=== PATIENT | male | born 1965 | race Caucasian/White ===

== ENCOUNTER 2021-11-03 18:57 | Inpatient (IN) | payer OTHER ==
[2021-11-03] MEDS ORDERED: NA CHLORIDE 0.9% 1,000 ML ONE ×2 (19:50→19:51)
[2021-11-03 20:30] LABS: Absolute Lymphocytes (CBC) 0.7 K/uL (0.7-4.9); Hematocrit 42.9 % (39.6-49.0); Lymphocytes % 3.2 % (15.3-44.8); MCV 90.6 fL (80-100); MPV 7.2 fL (7.6-11.3); RBC Red Blood Cell Count 4.73 M/uL (4.33-5.43)
[2021-11-03 20:36] LABS: Protime INR 1.12
--- NOTE | 2021-11-03 20:43 | RAD REPORT ---
EXAM DESCRIPTION: CT - Head Brain Wo Cont - 11/03/2021 8:23 pm CLINICAL HISTORY: Facial trauma, blunt COMPARISON: No comparisons TECHNIQUE: Axial 5 mm thick images of the head were obtained without IV contrast. All CT scans are performed using dose optimization technique as appropriate and may include automated exposure control or mA/KV adjustment according to patient size. FINDINGS: No intracranial hemorrhage, mass, edema or shift of mid-line structures. No acute infarcti on changes seen. No abnormal extra-axial fluid collections. Ventricles are normal. Mastoid air cells and visualized portions of the paranasal sinuses are clear. No acute bony findings. IMPRESSION: Negative non-contrast CT head examination.
--- NOTE | 2021-11-03 20:46 | RAD REPORT ---
EXAM DESCRIPTION: RAD - Chest Single View - 11/03/2021 8:35 pm CLINICAL HISTORY: tachycardia, syncope COMPARISON: Two view chest 01/23/2012 TECHNIQUE: AP portable chest image was obtained 11/03/2021 8:35 pm . FINDINGS: Lungs are clear. Heart and vasculature are normal. No measurable pleural effusion and no p neumothorax. No acute bony abnormality seen. No acute aortic findings suspected. IMPRESSION: No acute cardiopulmonary process.
[2021-11-03 20:51] LABS: Albumin 3.9 g/dL (3.4-5.0); Bilirubin Direct 0.2 mg/dL (0-0.2); Bilirubin Total 0.8 mg/dL (0.2-1.0); Potassium 3.8 mmol/L (3.5-5.1); Protein, Total 7.2 g/dL (6.4-8.2); Troponin High Sensitivity 17.4 pg/mL (<58.9)
--- NOTE | 2021-11-03 21:56 | EDPHYS ---
Physician Documentation [facility] Name: Krissy Schmitz Age: 56 yrs Sex: Male : 1965 Arrival Date: 11/03/2021 Time: 18:59 Bed 27 Private MD: ED Physician Ayaan Montenegro HPI: 11/03 19:31 This 56 yrs old Male presents to ER via EMS with complaints of Fall. mh7 19:31 Details of fall: The patient fell from an upright position, while walking. Onset: The mh7 symptoms/episode began/occurred today. Associated injuries: The patient sustained no obvious injury. Severity of symptoms: At their worst the symptoms were moderate, earlier today, in the emergency department the symptoms have improved, moderately. Patient states that he was working today for several hours sweating a lot due to the nature of his work. He states that he had some nausea. He states that while he was walking he tripped over a rug and fell onto the ground and had an episode of diarrhea. He denies any LOC or head injury at that time. He states earlier at work he accidentally bumped into a pipe hitting the left side of his forehead but had no LOC at that time. He denies any chest pain, abdominal pian, SOB, fever, cough, vomiting, dizziness, numbness/tingling, or weakness.. Historical: - Allergies: 19:18 No Known Allergies; ld1 - Home Meds: 19:18 Lasix 20 mg Oral tab 1 tab 3 times per day [Active]; losartan 50 mg oral tab 1 tab 2 ld1 times per day [Active]; - PMHx: 19:18 Hypertensive disorder; ld1 - PSHx: 19:18 None; ld1 - Immunization history:: Adult Immunizations up to date, Client reports receiving the 2nd dose of the Covid vaccine. - Social history:: Smoking status: Patient denies any tobacco usage or history of. Patient/guardian denies using alcohol. ROS: 19:31 Constitutional: Negative for fever, chills, and weight loss, Eyes: Negative for injury, mh7 pain, redness, and discharge, ENT: Negative for injury, pain, and discharge, Neck: Negative for injury, pain, and swelling, Cardiovascular: Negative for chest pain, palpitations, and edema, Respiratory: Negative for shortness of breath, cough, wheezing, and pleuritic chest pain. 19:31 Back: Negative for injury and pain, : Negative for injury, bleeding, discharge, and swelling, MS/Extremity: Negative for injury and deformity, Skin: Negative for injury, rash, and discoloration, Neuro: Negative for headache, weakness, numbness, tingling, and seizure, Psych: Negative for depression, anxiety, suicide ideation, homicidal ideation, and hallucinations, Allergy/Immunology: Negative for hives, rash, and allergies, Endocrine: Negative for neck swelling, polydipsia, polyuria, polyphagia, and marked weight changes, Hematologic/Lymphatic: Negative for swollen nodes, abnormal bleeding, and unusual bruising. 19:31 Abdomen/GI: Negative for abdominal pain, vomiting, constipation, abdominal cramps, abdominal distension, anorexia, dysphagia, hematemesis, black/tarry stool, rectal pain, rectal bleeding, bowel incontinence, flatulence. Exam: 19:31 Constitutional: This is a well developed, well nourished patient who is awake, alert, mh7 and in no acute distress. 19:31 Eyes: Pupils equal round and reactive to light, extra-ocular motions intact. Lids and mh7 lashes normal. Conjunctiva and sclera are non-icteric and not injected. Cornea within normal limits. Periorbital areas with no swelling, redness, or edema. Neck: Trachea midline, no thyromegaly or masses palpated, and no cervical lymphadenopathy. Supple, full range of motion without nuchal rigidity, or vertebral point tenderness. No Meningismus. Chest/axilla: Normal chest wall appearance and motion. Nontender with no deformity. No lesions are appreciated. 19:31 Respiratory: Lungs have equal breath sounds bilaterally, clear to auscultation and percussion. No rales, rhonchi or wheezes noted. No increased work of breathing, no retractions or nasal flaring. Abdomen/GI: Soft, non-tender, with normal bowel sounds. No distension or tympany. No guarding or rebound. No evidence of tenderness throughout. Back: No spinal tenderness. No costovertebral tenderness. Full range of motion. Skin: Warm, dry with normal turgor. Normal color with no rashes, no lesions, and no evidence of cellulitis. MS/ Extremity: Pulses equal, no cyanosis. Neurovascular intact. Full, normal range of motion. 19:31 Psych: Awake, alert, with orientation to person, place and time. Behavior, mood, and affect are within normal limits. 19:31 Head/face: Noted is abrasion(s), that are mild, of the forehead, contusion, that is superficial, of the forehead. 19:31 Cardiovascular: Rate: tachycardic, Rhythm: regular, Pulses: no pulse deficits are appreciated, Heart sounds: normal, normal S1and S2, Edema: is not appreciated, JVD: is not appreciated. 19:31 Neuro: Orientation: is normal, Mentation: is normal, Memory: is normal, Cranial nerves: grossly normal, Cerebellar function: is grossly normal, Motor: is normal, Sensation: is normal, Gait: not tested. seizure activity, is not displayed by the patient, Abnormal movements: there are no abnormal movements. Vital Signs: 19:16 Pulse 128; Resp 26; Temp 98.9(O); Pulse Ox 95% on R/A; Weight 136.08 kg; Height 5 ft. 8 ld1 in. (172.72 cm); Pain 0/10; 19:24 BP 101 / 65; ld1 21:38 BP 103 / 66; Pulse 117; Resp 20 S; Pulse Ox 97% on R/A; as6 23:00 BP 111 / 70; Pulse 121; Resp 19 S; Pulse Ox 97% on R/A; as6 11/04 01:00 BP 120 / 72; Pulse 119; Resp 16 S; Pulse Ox 100% on R/A; as6 11/03 19:16 Body Mass Index 45.61 (136.08 kg, 172.72 cm) ld1 MDM: 11/03 21:50 Differential diagnosis: abrasion, closed head injury, contusion, fracture. Data [facility] reviewed: vital signs, nurses notes, EMS record, lab test result(s), cardiac enzymes, CBC, electrolytes, Flu: negative EKG, radiologic studies, CT scan, plain films. Data interpreted: Pulse oximetry: on room air is 97 %. Interpretation: normal. Counseling: I had a detailed discussion with the patient and/or guardian regarding: the historical points, exam findings, and any diagnostic results supporting the discharge/admit diagnosis, lab results, radiology results, the need for further work-up and treatment in the hospital. Response to treatment: the patient's symptoms have mildly improved after treatment. 21:55 Patient medically screened. 11/03 19:22 Order name: Basic Metabolic Panel; Complete Time: 21:15 11/03 19:22 Order name: CBC with Diff; Complete Time: 04:45 11/03 19:22 Order name: LFT's; Complete Time: 21:17 11/03 19:22 Order name: Magnesium; Complete Time: 21: 11/03 19:22 Order name: NT PRO-BNP; Complete Time: 21: 11/03 19:22 Order name: PT-INR; Complete Time: 04:45 11/03 19:22 Order name: Troponin HS; Complete Time: 21: 11/03 19:23 Order name: CPK; Complete Time: 21:17 11/03 19:24 Order name: COVID-19 SARS RT PCR (Document "Date of Onset" if Symptomatic); Complete [facility] Time: :11/03 19:25 Order name: Influenza Screen (a \\T\\ B); Complete Time: 21:17 11/03 20:37 Order name: Blood Culture Adult (2) 11/03 20:37 Order name: Lactate; Complete Time: 04:45 11/03 20:37 Order name: Procalcitonin; Complete Time: 04:45 11/03 22:05 Order name: CBC Smear Scan; Complete Time: 04:45 [facility] 11/03 19:22 Order name: XRAY Chest (1 view); Complete Time: 20:49 11/03 19:22 Order name: EKG; Complete Time: 19:23 11/03 19:22 Order name: Cardiac monitoring; Complete Time: 19:40 11/03 19:22 Order name: EKG - Nurse/Tech; Complete Time: 20:12 11/03 19:22 Order name: IV Saline Lock; Complete Time: 20:13 11/03 19:22 Order name: Labs collected and sent; Complete Time: 20:13 11/03 19:22 Order name: O2 Per Protocol; Complete Time: 19:40 11/03 19:22 Order name: O2 Sat Monitoring; Complete Time: 19:40 7 11/03 19:23 Order name: CT Head Brain wo Cont; Complete Time: 20:49 7 11/03 22:27 Order name: D-Dimer; Complete Time: 04:45 EDMS 11/04 04:22 Order name: CBC with Automated Diff; Complete Time: 04:45 EDMS 11/04 04:24 Order name: Comprehensive Metabolic Panel; Complete Time: 04:45 EDMS Administered Medications: 20:12 Drug: NS 0.9% 1000 ml Route: IV; Rate: 1000 ml; Site: right antecubital; as6 23:18 Follow up: Response: No adverse reaction; IV Status: Completed infusion; IV Intake: as6 1000ml 21:33 Drug: NS 0.9% 1000 ml Route: IV; Rate: 1000 ml; Site: right antecubital; as6 23:19 Follow up: Response: No adverse reaction; IV Status: Completed infusion; IV Intake: as6 1000ml 23:13 Drug: ceFAZolin 1 grams Volume: 50 ml; Route: IVPB; Infused Over: 30 mins; Site: right as6 antecubital; 11/04 03:17 Follow up: Response: No adverse reaction; IV Status: Completed infusion; IV Intake: [id number] Disposition Summary: 11/03/21 21:55 Hospitalization Ordered Condition: Stable [facility] Problem: new [facility] Symptoms: have improved [facility] Bed/Room Type: Standard [facility] Hospitalization Status: Inpatient Admission(11/03/21 21:55) [facility] Provider: Lauri Staples(11/03/21 21:55) la1 Location: Telemetry/MedSurg (Inpatient)(11/04/21 07:12) Room Assignment: 213(11/04/21 07:12) bd Diagnosis - Syncope Near [facility] - Leukocytosis [facility] Forms: - Medication Reconciliation Form 7 - SBAR form 7 Signatures: Dispatcher [employer] EDMariza Dill Brenda RN RN Damien Erickson, [employer] FABRICATOR-C [employer] FABRICATOR-Cla1 Selma Chang RN RN cg Holmes, Maurice, MD MD 7 Candida Rangel RN RN ld1 Lamine Soares RN RN as6 Corrections: (The following items were deleted from the chart) 11/03 21:55 21:55 Observation mh7 mh7 21:55 21:55 OmitogunBrady mh7 la1 21:55 21:55 Telemetry/MedSurg (observation) 7 7 21:55 21:55 7 7 22:24 22:22 D-DIMER+COAG.LAB.BRZ ordered. EDMS EDMS 23:07 21:55 Telemetry/MedSurg (Inpatient) 7 cg 23:07 21:55 7 cg 11/04 02:05 11/03 23:07 [facility] ER HOLD cg 11/04 02:05 11/03 23:07 ERHOLD- cg bb 11/04 02:06 02:05 Telemetry/MedSurg (Inpatient) bb bb 02:06 02:05 bb bb 07:12 02:06 [facility] ER HOLD bb bd 07:12 02:06 ERHOLD- bb bd
--- NOTE | 2021-11-03 21:56 | ER ---
Nurse's Notes [facility] Name: Krissy Schmitz Age: 56 yrs Sex: Male : 1965 Arrival Date: 11/03/2021 Time: 18:59 Bed 27 Private MD: Diagnosis: Syncope Near;Leukocytosis Presentation: 11/03 18:59 Chief complaint: EMS states: EMS reports syncopal episode at work, diaphoretic - fell ld1 and hit head, defecated on self during episode. Coronavirus screen: At this time, the client does not indicate any symptoms associated with coronavirus-19. Ebola Screen: No symptoms or risks identified at this time. Initial Sepsis Screen: Does the patient meet any 2 criteria? No. Patient's initial sepsis screen is negative. Does the patient have a suspected source of infection? No. Patient's initial sepsis screen is negative. Risk Assessment: Do you want to hurt yourself or someone else? Patient reports no desire to harm self or others. Onset of symptoms was November 03, 2021. 18:59 Method Of Arrival: EMS: [facility] ld1 18:59 Acuity: ANTONY 3 ld1 Triage Assessment: 18:59 General: Appears in no apparent distress. comfortable, Behavior is calm, cooperative, ld1 appropriate for age. Pain: Denies pain. EENT: No signs and/or symptoms were reported regarding the EENT system. Neuro: Level of Consciousness is awake, alert, obeys commands, Oriented to person, place, time, situation. Cardiovascular: Capillary refill < 3 seconds Patient's skin is warm and dry. Respiratory: Airway is patent Respiratory effort is even, unlabored, Respiratory pattern is regular, symmetrical. GI: Abdomen is round non-distended, obese. : No signs and/or symptoms were reported regarding the genitourinary system. Derm: No signs and/or symptoms reported regarding the dermatologic system. Musculoskeletal: No signs and/or symptoms reported regarding the musculoskeletal system. Historical: - Allergies: 19:18 No Known Allergies; ld1 - Home Meds: 19:18 Lasix 20 mg Oral tab 1 tab 3 times per day [Active]; losartan 50 mg oral tab 1 tab 2 ld1 times per day [Active]; - PMHx: 19:18 Hypertensive disorder; ld1 - PSHx: 19:18 None; ld1 - Immunization history:: Adult Immunizations up to date, Client reports receiving the 2nd dose of the Covid vaccine. - Social history:: Smoking status: Patient denies any tobacco usage or history of. Patient/guardian denies using alcohol. Screenin:39 Abuse screen: Denies threats or abuse. Denies injuries from another. Nutritional as6 screening: No deficits noted. Tuberculosis screening: No symptoms or risk factors identified. Fall Risk None identified. Assessment: 21:39 Reassessment: Patient appears in no apparent distress at this time. as6 Vital Signs: 19:16 Pulse 128; Resp 26; Temp 98.9(O); Pulse Ox 95% on R/A; Weight 136.08 kg; Height 5 ft. 8 ld1 in. (172.72 cm); Pain 0/10; 19:24 BP 101 / 65; ld1 21:38 BP 103 / 66; Pulse 117; Resp 20 S; Pulse Ox 97% on R/A; as6 23:00 BP 111 / 70; Pulse 121; Resp 19 S; Pulse Ox 97% on R/A; as6 11/04 01:00 BP 120 / 72; Pulse 119; Resp 16 S; Pulse Ox 100% on R/A; as6 11/03 19:16 Body Mass Index 45.61 (136.08 kg, 172.72 cm) ld1 ED Course: 11/03 18:59 Patient arrived in ED. ld1 18:59 Candida Rangle, CATRACHITA is Primary Nurse. ld1 18:59 Arm band placed on right wrist. ld1 19:02 Triage completed. ld1 19:19 Ayaan Montenegro MD is Attending Physician. mh7 20:00 Inserted saline lock: 20 gauge in right antecubital area, using aseptic technique. as6 Blood collected. 20:25 CT Head Brain wo Cont In Process Unspecified. EDMS 20:37 XRAY Chest (1 view) In Process Unspecified. EDMS 21:39 Placed in gown. Bed in low position. Call light in reach. Side rails up X2. Client as6 placed on continuous cardiac and pulse oximetry monitoring. NIBP monitoring applied. 21:54 Brady Cooney MD is Hospitalizing Provider. mh7 21:55 Lauri Staples MD is Hospitalizing Provider. la1 23:17 No provider procedures requiring assistance completed. Patient admitted, IV remains in as6 place. 11/04 00:35 Primary Nurse role handed off by Candida Rangel, CATRACHITA as6 00:35 Lamine Soares, RN is Primary Nurse. as6 Administered Medications: 11/03 20:12 Drug: NS 0.9% 1000 ml Route: IV; Rate: 1000 ml; Site: right antecubital; as6 23:18 Follow up: Response: No adverse reaction; IV Status: Completed infusion; IV Intake: as6 1000ml 21:33 Drug: NS 0.9% 1000 ml Route: IV; Rate: 1000 ml; Site: right antecubital; as6 23:19 Follow up: Response: No adverse reaction; IV Status: Completed infusion; IV Intake: as6 1000ml 23:13 Drug: ceFAZolin 1 grams Volume: 50 ml; Route: IVPB; Infused Over: 30 mins; Site: right as6 antecubital; 11/04 03:17 Follow up: Response: No adverse reaction; IV Status: Completed infusion; IV Intake: [id number] Medication: 11/03 23:17 VIS not applicable for this client. as6 Intake: 23:18 IV: 1000ml; Total: 1000ml. as6 23:19 IV: 1000ml; Total: 2000ml. as6 11/04 03:17 IV: 50ml; Total: 2050ml. as6 Outcome: 11/03 21:55 Decision to Hospitalize by Provider. mh7 23:17 Admitted to ER Hold. Please see [facility] for further documentation. as6 23:17 Condition: stable 23:17 Instructed on the need for admit. 11/04 11:09 Patient left the ED. aa5 Signatures: Dispatcher [employer] EDMS Dee De La Rosa RN RN aa5 Damien Samson, HAIR AND MAKEUP DESIGNER-C HAIR AND MAKEUP DESIGNER-Cla1 Ayaan Montenegro MD MD 7 Candida Rangel, RN RN ld1 Lamine Soares, CATRACHITA RN as6
[2021-11-03 22:04] LABS: Blood Morphology Comment NOT SEEN (NOT SEEN); Platelet Estimate ADEQ; White Blood Cell Scan OK (OK)
--- NOTE | 2021-11-03 22:32 | P.HP ---
Certification for Inpatient Patient admitted to: Observation With expected LOS: >2 Midnights Patient will require the following post-hospital care: None Practitioner: I am a practitioner with admitting privileges, knowledge of patient current condition, hospital course, and medical plan of care. Services: Services provided to patient in accordance with Admission requirements found in Title 42 Section 412.3 of the Code of Federal Regulations Patient History Date of Service: 11/03/21 Reason for admission: Syncope History of Present Illness: 56-year-old male with history of hypertension presents emergency department for near syncope, he reports that he was at work walking out when he became suddenly weak, cool and clammy and nausea followed by an episode of bowel incontinence/diarrhea patient soon after tripped on a rug on the ground and fell to the ground he denies loss of consciousness states he was awake the whole time he reports that he does have periodic bowel incontinence after having spinal surgery in 2009. On arrival to the emergency department patient was tachycardic with a heart rate around 130 and blood pressure around 110- 115 systolic. Labs were significant for leukocytosis with white blood cell count 21.8. His heart rate improved with IV fluids to around 109 subsequently procalcitonin was elevated 1.22. Only apparent source of infection is possible cellulitis of the right lower extremity. Patient with chronic edema of lower extremities likely lymphedema reports worsening redness of the right lower extremity over the course of the last few days. I have added a D-dimer given his persistent tachycardia and near syncope to rule out pulmonary embolism venous Dopplers pending given dose of antibiotic will admit for further evaluation and management of near syncope/rule out sepsis. - Past Medical/Surgical History -: Hypertension -: Low back surgery 2010 Psychosocial/ Personal History: Lives at home with family - Family History Family History: Reviewed- Non-Contributory - Social History Smoking Status: Never smoker Alcohol use: No CD- Drugs: No Caffeine use: Yes Place of Residence: Home Review of Systems 10-point ROS is otherwise unremarkable Cardiovascular: Light Headedness, As per HPI Gastrointestinal: Nausea, Diarrhea Physical Examination - Physical Exam General: Alert, In no apparent distress, Oriented x3, Obese HEENT: Atraumatic, PERRLA, Mucous membr. moist/pink, EOMI, Sclerae nonicteric Neck: Supple, 2+ carotid pulse no bruit, No LAD, Without JVD or thyroid abnormality Respiratory: Clear to auscultation bilaterally, Normal air movement Cardiovascular: Regular rate/rhythm, Normal S1 S2, Edema Capillary refill: <2 Seconds Gastrointestinal: Normal bowel sounds, No tenderness Musculoskeletal: No tenderness Integumentary: Erythema, Other (Swelling ENOC LE with erythema ) Neurological: Normal speech, Normal strength at 5/5 x4 extr, Normal tone, Normal affect - Studies Laboratory Data (last 24 hrs) 11/03/21 20:09: PT 12.3, INR 1.12 11/03/21 20:09: WBC 21.8 H*, Hgb 14.3, Hct 42.9, Plt Count 212 11/03/21 20:09: Sodium 137, Potassium 3.8, BUN 16, Creatinine 1.01, Glucose 95, Magnesium 2.0, Total Bilirubin 0.8, AST 20, ALT 46, Alkaline Phosphatase 45 Microbiology Data (last 24 hrs): 11/03/21 20:09 Nasopharnyx Influenza Type A Antigen Screen - Final 11/03/21 20:09 Nasopharnyx Influenza Type B Antigen Screen - Final Assessment and Plan - Plan Assessment: Near syncope Rule out sepsis/RLE Cellulitis HTN Plan: Near syncope: Monitor on tele, continue IVF, will obtain orthostatic vitals. Pt with tachycardia and near syncope will obtain DD to rule out PE. Labs notable for leukocytosis, mild elevation in procalcitonin lactate is within normal limits also need to rule out sepsis will cover with antibiotics for possible right lower extremity cellulitis blood cultures were obtained. Rule out sepsis/RLE Cellulitis: Questionable cellulitis right lower extremity patient with chronic edema of lower extremities he reports the redness in the right lower extremity is a little worse than normal given significant leukocytosis, elevated procalcitonin will cover with antibiotics for the time being endorgan damage, hypotension or lactic acidosis noted. HTN: On medications when appropriate. Patient does take Lasix at home could contribute to volume depletion. DVT PPX: Lovenox Code status:Full Discharge Plan: Home Plan to discharge in: 24 Hours - Advance Directives Does patient have a Living Will: No Does patient have a Durable POA for Healthcare: No - Code Status/Comfort Care Code Status Assessed: Yes (Full code) Critical Care: No Time Spent Managing Pts Care (In Minutes): 70
[2021-11-03] MEDS ORDERED: NA CHLORIDE 0.9% 50 ML ONE (22:46)
[2021-11-03] MEDS ORDERED: CEFAZOLIN SODIUM 1 GM/VIAL ONE (22:46)
[2021-11-04] MEDS ORDERED: ONDANSETRON 4 MG/2 ML VIAL IV PRN (02:19)
[2021-11-04] MEDS ORDERED: NA CHLORIDE 0.9% 1,000 ML ONE (02:45)
[2021-11-04 02:57] VITALS: BMI 45.6
[2021-11-04 04:06] LABS: Absolute Lymphocytes (CBC) 1.1 K/uL (0.7-4.9); Hematocrit 40.5 % (39.6-49.0); Lymphocytes % 4.2 % (15.3-44.8); MCV 90.7 fL (80-100); MPV 7.6 fL (7.6-11.3); RBC Red Blood Cell Count 4.46 M/uL (4.33-5.43)
[2021-11-04 04:23] LABS: Albumin 3.8 g/dL (3.4-5.0); Bilirubin Total 0.8 mg/dL (0.2-1.0); Potassium 3.7 mmol/L (3.5-5.1); Protein, Total 7.2 g/dL (6.4-8.2)
[2021-11-04] MEDS ORDERED: VANCOMYCIN 1 GM in NA CHLORIDE 0.9% 250 ML IVPB SCH (05:00)
[2021-11-04] MEDS ORDERED: VANCOMYCIN 2 GM in NA CHLORIDE 0.9% 500 ML IVPB ONE (06:00)
[2021-11-04] MEDS ORDERED: VANCOMYCIN 1 GM/VIAL ONE (06:26)
[2021-11-04] MEDS ORDERED: NA CHLORIDE 0.9% 250 ML ONE (06:31)
[2021-11-04] MEDS ORDERED: NA CHLORIDE 0.9% 500 ML ONE (06:49)
[2021-11-04] MEDS: NA CHLORIDE 0.9% 1,000 ML IV SCH ×2 (08:00→23:49)
[2021-11-04] MEDS ORDERED: CEFAZOLIN 1 GM in NA CHLORIDE 0.9% 50 ML IVPB SCH (09:00)
[2021-11-04] MEDS ORDERED: ACETAMINOPHEN 500 MG TAB PO ONE (09:00)
[2021-11-04] MEDS: ENOXAPARIN 40 MG/0.4 ML SQ SCH (09:00)
[2021-11-04] MEDS ORDERED: CEFEPIME 1 GM in NA CHLORIDE 0.9% 100 ML IV SCH (09:00)
[2021-11-04] MEDS ORDERED: CEFEPIME 2 GM VIAL ONE (09:22)
[2021-11-04] MEDS ORDERED: ACETAMINOPHEN 500 MG TAB ONE (09:22)
[2021-11-04] MEDS ORDERED: ENOXAPARIN 40 MG/0.4 ML SQ ONE (09:23)
[2021-11-04] MEDS ORDERED: NA CHLORIDE 0.9% 100 ML ONE (09:23)
[2021-11-04] MEDS: CEFEPIME 2 GM in NA CHLORIDE 0.9% 100 ML IV SCH ×2 (10:30→20:36)
--- NOTE | 2021-11-04 14:07 | RAD REPORT ---
EXAM DESCRIPTION: USExtrem Venous W Compress Bil11/04/2021 4:42 am US - Extrem Venous W Compress Maurice - 11/04/2021 4:42 am CLINICAL HISTORY: Leg pain COMPARISON: none FINDINGS: The common femoral, superficial femoral, popliteal and posterior tibial veins bilaterally are compressible and demonstrate augmentation. Doppler demonstrates good flow. Grayscale, color and spectral analysis performed on all vessels IMPRESSION: No evidence of deep venous thrombosis involving either lower extremity.
--- NOTE | 2021-11-04 14:41 | EKG ---
Test Date: 2021-11-03 Test Time: 19:59:42 Speech Therapist: MEASUREMENT RESULTS: Intervals: Rate: 114 ND: 168 QRSD: 80 QT: 324 QTc: 446 [place]: P: 56 ND: 168 QRS: 38 T: 36 INTERPRETIVE STATEMENTS: Sinus tachycardia Otherwise normal ECG Compared to ECG 01/23/2012 12:10:27 Sinus rhythm no longer present ST (T wave) deviation no longer present Electronically Signed On 11-04-21 14:40:23 CDT by Ever Nicole
[2021-11-04 17:58] LABS: Urine Appearance Clear (Clear); Urine Bilirubin Negative (Negative); Urine Blood Negative (Negative); Urine Color Yellow (Yellow); Urine Glucose Negative (Negative); Urine Protein Negative (Negative); Urine Urobilinogen 0.2 mg/dL (0.2-1.0)
[2021-11-04] MEDS: ACETAMINOPHEN 500 MG TAB PO PRN (20:39)
--- NOTE | 2021-11-04 23:59 | P.PN ---
Subjective Date of Service: 11/04/21 Chief Complaint: Syncope Subjective: No new changes, No C/O voiced, Improving Review of Systems 10-point ROS is otherwise unremarkable Physical Examination - Vital Signs Temperature: 101.2 F Blood Pressure: 119/66 Pulse: 85 Respirations: 18 Pulse Ox (%): 93 - Physical Exam General: Alert, In no apparent distress HEENT: Atraumatic, PERRLA, EOMI Neck: Supple, JVD not distended Respiratory: Clear to auscultation bilaterally, Normal air movement Cardiovascular: Regular rate/rhythm, Normal S1 S2 Gastrointestinal: Normal bowel sounds, No tenderness Musculoskeletal: No tenderness Integumentary: No rashes Neurological: Normal speech, Normal tone, Normal affect Lymphatics: No axilla or inguinal lymphadenopathy - Studies Microbiology Data (last 24 hrs): 11/03/21 20:09 Nasopharnyx Influenza Type A Antigen Screen - Final 11/03/21 20:09 Nasopharnyx Influenza Type B Antigen Screen - Final Medications List Reviewed: Yes Assessment & Plan - Problems (Diagnosis) (1) Cellulitis Status: Acute - Plan PLAN: 1. Continue with IV antibiotic 2. Continue with local wound care 3. Wound care consultation/surgical consultation 4. Gentle IV hydration 5. Monitor CBC 6. Strict blood sugar monitoring 7. Pain control 8. GI and DVT prophylaxis Discharge Plan: Home Plan to discharge in: Greater than 2 days - Advance Directives Does patient have a Living Will: No Does patient have a Durable POA for Healthcare: No - Code Status/Comfort Care Code Status Assessed: Yes Code Status: Full Code Critical Care: No Time Spent Managing PTS Care (In Minutes): 45
[2021-11-05] MEDS ORDERED: VANCOMYCIN 1.75 GM in NA CHLORIDE 0.9% 500 ML IVPB SCH ×2
[2021-11-05] MEDS ORDERED: VANCOMYCIN 2 GM in NA CHLORIDE 0.9% 500 ML IVPB SCH ×2
[2021-11-05] MEDS ORDERED: NA CHLORIDE 0.9% 1,000 ML IV SCH (00:01)
[2021-11-05] MEDS: ACETAMINOPHEN 500 MG TAB PO PRN (05:09)
[2021-11-05] MEDS: HYDROCORTISONE SUC 100 MG INJ IV SCH ×2 (05:10→09:33)
[2021-11-05 05:44] LABS: Absolute Lymphocytes (CBC) 1.4 K/uL (0.7-4.9); Hematocrit 36.6 % (39.6-49.0); Lymphocytes % 10.2 % (15.3-44.8); MCV 90.6 fL (80-100); MPV 7.2 fL (7.6-11.3); RBC Red Blood Cell Count 4.03 M/uL (4.33-5.43)
[2021-11-05 06:00] LABS: Albumin 3.2 g/dL (3.4-5.0); Bilirubin Total 0.7 mg/dL (0.2-1.0); Potassium 3.6 mmol/L (3.5-5.1); Protein, Total 6.2 g/dL (6.4-8.2)
[2021-11-05] MEDS ORDERED: POTASSIUM CL SA 10 MEQ TAB PO ONE (09:00)
[2021-11-05] MEDS: ENOXAPARIN 40 MG/0.4 ML SQ SCH (09:36)
[2021-11-05] MEDS: CEFEPIME 2 GM in NA CHLORIDE 0.9% 100 ML IV SCH (09:37)
[2021-11-05 14:09] VITALS: O2SAT 98
--- NOTE | 2021-11-05 23:45 | P.DS ---
Discharge Date: 11/05/21 Disposition: ROUTINE DISCHARGE Discharge Condition: GOOD Reason for Admission: Syncope Brief History of Present Illness: 56-year-old male with history of hypertension presents emergency department for near syncope, he reports that he was at work walking out when he became suddenly weak, cool and clammy and nausea followed by an episode of bowel incontinence/diarrhea patient soon after tripped on a rug on the ground and fell to the ground he denies loss of consciousness states he was awake the whole time he reports that he does have periodic bowel incontinence after having spinal surgery in 2009. On arrival to the emergency department patient was tachycardic with a heart rate around 130 and blood pressure around 110- 115 systolic. Labs were significant for leukocytosis with white blood cell count 21.8. His heart rate improved with IV fluids to around 109 subsequently procalcitonin was elevated 1.22. Only apparent source of infection is possible cellulitis of the right lower extremity. Patient with chronic edema of lower extremities likely lymphedema reports worsening redness of the right lower extremity over the course of the last few days. I have added a D-dimer given his persistent tachycardia and near syncope to rule out pulmonary embolism venous Dopplers pending given dose of antibiotic will admit for further evaluation and management of near syncope/rule out sepsis. Hospital Course: Patient is clinically doing much better. Erythema in the lower extremities have improved. He states that this is normal for him. He does not want any further workup and he is adamant about going home today. His white count has come down. I will go ahead and change in oral antibiotics. At this time, he is stable for discharge with outpatient follow-up. Vital Signs/Physical Exam: Temp Pulse Resp BP Pulse Ox 98.9 F 86 18 137/81 97 11/05/21 12:00 11/05/21 12:00 11/05/21 12:00 11/05/21 12:00 11/05/21 12:00 General: Alert, In no apparent distress, Oriented x3 Laboratory Data at Discharge: WBC 14.1 K/uL (4.3-10.9) H D 11/05/21 05:18 Hgb 12.7 g/dL (13.6-17.9) L 11/05/21 05:18 Hct 36.6 % (39.6-49.0) L 11/05/21 05:18 Plt Count 164 K/uL (152-406) D 11/05/21 05:18 PT 12.3 SECONDS (9.5-12.5) 11/03/21 20:09 INR 1.12 11/03/21 20:09 Sodium 138 mmol/L (136-145) 11/05/21 05:18 Potassium 3.6 mmol/L (3.5-5.1) 11/05/21 05:18 BUN 12 mg/dL (7-18) 11/05/21 05:18 Creatinine 0.83 mg/dL (0.55-1.3) 11/05/21 05:18 Glucose 99 mg/dL (74-106) 11/05/21 05:18 Magnesium 2.0 mg/dL (1.8-2.4) 11/03/21 20:09 Total Bilirubin 0.7 mg/dL (0.2-1.0) 11/05/21 05:18 AST 164 U/L (15-37) H D 11/05/21 05:18 ALT 60 U/L (12-78) 11/05/21 05:18 Alkaline Phosphatase 35 U/L (45-117) L 11/05/21 05:18 Home Medications: Atorvastatin Calcium 1 tab PO DAILY 11/04/21 Carvedilol [Coreg] 1 tab PO BID 11/04/21 Furosemide 1 tab PO DAILY 11/04/21 Losartan Potassium 1 tab PO DAILY 11/04/21 Potassium Chloride [Klor-Con M20] 1 tab PO BID 11/04/21 Spironolactone 1 tab PO DAILY 11/04/21 Minocycline HCl 100 mg PO BID #20 capsule 11/05/21 Smz./Tmp. [Bactrim Ds 800 MG/160 MG] 1 tab PO BID #14 tab 11/05/21 predniSONE [Prednisone*] 20 mg PO DAILY #5 tab 11/05/21 New Medications: Smz./Tmp. [Bactrim Ds 800 MG/160 MG] 1 tab PO BID #14 tab Minocycline HCl 100 mg PO BID #20 capsule predniSONE [Prednisone*] 20 mg PO DAILY #5 tab Physician Discharge Instructions: OK TO DC IV AND DC HOME FOLLOW-UP WITH PRIMARY CARE PROVIDER IN 1-2 WEEKS RETURN TO THE ER IF symptoms worsen CALL DR. SAINZ AT [phone] IF ANY QUESTIONS REGARDING HOSPITAL STAY. PLEASE CALL THE FLOOR AT [phone] IF ANY MEDICATION OR NURSING QUESTIONS. Diet: ADA Activity: Fall precautions Followup: OOT,OOT [Primary Care Provider] - Time spent managing pt's care (in minutes): 35
[2021-11-06 14:07] VITALS: BP 119/66; TEMP 101.2
== END 2021-11-05 12:11 | disposition home or self-care (01) | DRG 872 ==
LOC: ER 18:57 → OBSVTOIN 11-04 01:57 → ERHOLD 11-04 01:57 → 2ND 11-04 09:30
PROVIDERS: ADMIT Hospitalist; ATTEND Hospitalist
DX: A41.9 Sepsis, unspecified organism (principal); L03.115 Cellulitis of right lower limb; I10 Essential (primary) hypertension; R55 Syncope and collapse; Z20.822 Contact with and (suspected) exposure to COVID-19
CPT/HCPCS: 36415; 70450; 71045; 80048; 80053; 80076; 81003; 82550; 83605; 83735; 83880; 84145; 84484; 85025; 85379; 85610; 87040; 87804; 93005; 93970; 96361; 96365; 96366; 99285; J0690; J0692; J1650; J1720; J3370; J7030; J7040; J7050; Q9967; U0003